=== PATIENT | male | born 1970 | race Caucasian/White ===

== ENCOUNTER → 2023-08-13 08:49 | Outpatient (CLI) | payer OTHER, SELFPAY ==
[2023-08-13 09:40] LABS: Add Manual Diff / Slide Review NO; Basophils Absolute Auto 0 /uL (0-100); Basophils Percent Auto 0.9 % (0-2); Eosinophils Absolute Auto 100 /uL (0-450); Eosinophils Percent Auto 1.7 % (2-4); Hematocrit 47.6 % (41-53); Hemoglobin 16.1 g/dL (13.5-17.5); Lymphocytes Absolute Auto 1900 /uL (1100-4500); Lymphocytes Percent Auto 35.9 % (25-40); Mean Corpuscular HGB Conc 33.8 % (30-36); Mean Corpuscular Volume 85.7 fL (80-100); Monocytes Absolute Auto 600 /uL (0-900); Monocytes Percent Auto 11.7 % (3-14); Neutrophils Absolute Auto 2600 /uL (1500-7000); Neutrophils Percent Auto 49.8 % (50-75); Platelet Count 334 X10^3/uL (150-400); Red Blood Cell Count 5.55 X10^6/uL (4.5-5.9); Red Cell Distribution Width 14.1 % (11.6-14.8); White Blood Cell Count 5.3 X10^3/uL (4.5-11.0)
[2023-08-13 09:56] LABS: Alanine Aminotransferase 50 IU/L (<50); Albumin 4.3 g/dL (3.5-5.0); Albumin Globulin Ratio 1.4 (1.0-2.8); Alkaline Phosphatase 77 U/L (38-126); Aspartate Aminotransferase 31 IU/L (17-59); Bilirubin Total 0.7 mg/dL (0.2-1.3); Blood Urea Nitrogen 19 mg/dL (9-20); Calcium 9.3 mg/dL (8.4-10.2); Carbon Dioxide 25 mmol/L (22-32); Chloride 107 mmol/L (98-107); Cholesterol 197 mg/dL (140-199); Estimated Glomerular Filt Rate > 60 mL/min (>60); Globulin 3.1 g/dL (1.7-4.1); Glucose 105 mg/dL (70-100); HDL Cholesterol 48 mg/dL (40-60); HEMOLYSIS < 15 (0-50); LDL Cholesterol Calculated 111 mg/dL (<100); Potassium 4.9 mmol/L (3.4-5.1); Sodium 140 mmol/L (137-145); Total Protein 7.4 g/dL (6.3-8.2); Triglycerides 192 mg/dL (35-150)
[2023-08-13 10:27] LABS: Prostate Specific Antigen Scrn 0.633 ng/mL (0.1-4.0)
[2023-08-13 15:50] LABS: HIV 1 & 2 Ab/Ag 4th Gen Combo NEGATIVE (NEGATIVE); Hep C Virus Ab w/Reflex Quant NEGATIVE s/c (NEGATIVE)
== END ==
PROVIDERS: PCP Family Medicine; Referring Provider Family Medicine; Visit Provider Family Medicine
DX: E78.5 Hyperlipidemia, unspecified (principal); Z11.4 Encounter for screening for human immunodeficiency virus [HIV]; Z11.59 Encounter for screening for other viral diseases; Z12.5 Encounter for screening for malignant neoplasm of prostate; Z13.9 Encounter for screening, unspecified
CPT/HCPCS: 36415; 80053; 80061; 85025; 86803; 87389; G0103

== ENCOUNTER 2024-01-22 08:46 | Day surgery (SDC) | payer BC, SELFPAY ==
[2024-01-22 09:17] VITALS: BP 146/85; PULSE 66; RESP 16; TEMP 36.2; O2SAT 96
[2024-01-22] MEDS: LACTATED RINGERS 1,000 ML 42 ML IV (09:26)
--- NOTE | 2024-01-22 10:04 | P.HP_ITS ---
History of Present Illness History of Present Illness Date Patient Seen: 01/22/24 Time Patient Seen: 10:04 Chief complaint: SDC Narrative: 53-year-old man here for 1st time screening colonoscopy. No family history of colon cancer. No abdominal concerns today. FOR[facility]LY [facility], [facility] Medical History Carpal tunnel syndrome (~2017) Malaria (~1996) Chicken pox (~1977) Chronic low back pain with left-sided sciatica (~2008) Dupuytren's contracture of foot Dupuytren's contracture of both hands Hyperlipidemia Surgical History Anesthesia History of hand surgery (~2018) History of back surgery (~2008) Family History Father Diabetes mellitus Hypertension Hyperlipidemia Mother Hyperlipidemia Social History marital status: number of children: 4 household members: spouse and children lives independently: Yes Previous occupational history: 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 [employer] Smoking Status: Never smoker alcohol intake: current substance use type: does not use Meds Home Medications and Allergies Home Medications Medication Instructions Recorded Confirmed Type No Known Home Medications 01/22/24 01/22/24 History Allergies Allergy/AdvReac Type Severity Reaction Status Date / Time No Known Drug Allergies Allergy Verified 01/22/24 09:12 Exam Vital Signs (past 8 hours): - 01/22/24 09:17 Temperature 97.1 F L Pulse Rate 66 Respiratory Rate 16 Blood Pressure 146/85 H Pulse Oximetry 96 Oxygen Delivery Method Room Air Oxygen Delivery Method Room Air Narrative Exam Narrative: General adult man alert oriented no acute distress Chest nonlabored respiration Extremities warm well perfused Assessment & Plan Assessment & Plan narrative: The patient requires colorectal screening and colonoscopy is recommended. Technical details were discussed. Risks, benefits, alternatives explained. Risks including but not limited to myocardial infarction, aspiration, bleeding, pain, missed lesion, incomplete examination, need for further radiographic studies, intestinal injury, and need for major abdominal surgery were discussed. All questions were answered to their satisfaction, and they are in agreement with this plan. Time-Based Coding :: [TOTAL MINUTES] spent with patient and on the chart (including review of chart, obtaining history, exam, reviewing outside data, placing orders, documenting exam and treatment plan, and counseling patient) on [DATE].
[2024-01-22 10:24] VITALS: BP 115/72; PULSE 65; RESP 16; TEMP 36.2; O2SAT 94
[2024-01-22 10:29] VITALS: BP 110/71; PULSE 64; RESP 16; O2SAT 94
--- NOTE | 2024-01-22 10:29 | P.OP.COLON_ITS ---
Operative Date/Time/Diagnoses Date of procedure: 01/22/24 Time of procedure: 10:30 Pre-op diagnosis: Colorectal screening Procedure & Clinicians Study performed: Colonoscopy Same procedure as scheduled: Yes Indications: Screening Surgeon: Tushar Hampton Procedure Notes Procedure in detail: The history and physical was performed/updated and the patient is ASA class is 2. The procedure was discussed in detail with the patient. Potential risks complications including infection, bleeding, missed diagnosis, perforation, need for surgery, and were explained. Their questions were answered and informed consent was obtained. Patient was brought to the procedure room and placed standard monitoring equipment. The patient's vital signs were monitored continuously throughout the entire procedure. Prior to starting time-out was performed. The patient was pl aced in the left lateral recumbent position. Procedural sedation was administered by anesthesia. Examination began with a thorough inspection of the perianal area there was no evidence of fissures, fistulae, external hemorrhoids or cutaneous malignancy. The colonoscopy scope was then placed into the anal canal and was advanced to the cecum, which was identified by the ileocecal valve, the appendiceal orifice and the confluence of the taenia. The scope was then slowly withdrawn examining colon thoroughly in all directions, irrigating it of any residual stool. The scope was retroflexed within the rectum The patient tolerated the procedure well. They will be discharged once criteria are met. The prep was of good/excellent quality. The withdrawl time was 6 minutes. FINDINGS * Unremarkable colonoscopy. Normal healthy colonic mucosa without mass or polyps. Specimen(s): none sent Impression: Normal colonoscopy Post-procedure Recommendations: Colonoscopy in 10 years Disposition: same day surgery
[2024-01-22 10:34] VITALS: BP 122/79; PULSE 61; RESP 12; TEMP 36.6; O2SAT 96
[2024-01-22 10:39] VITALS: BP 123/85; PULSE 66; RESP 16; O2SAT 99
== END 2024-01-22 10:52 | disposition home or self-care (01) ==
PROVIDERS: PCP Family Medicine; Referring Provider Surgery; Visit Provider Surgery
PROC: 0DJD8ZZ Inspection of Lower Intestinal Tract, Via Natural or Artificial Opening Endoscopic (ICD-10-PCS; CPT 45378; principal; 2024-01-22 09:45)
DX: Z12.11 Encounter for screening for malignant neoplasm of colon (principal)
CPT/HCPCS: 45378; J2704